=== PATIENT | male | born 1975 | race Caucasian/White ===

== ENCOUNTER 2016-10-13 08:18 | Emergency (ER) | payer OTHER ==
[~2016-10-13] VITALS: Ht 180.3 cm; Wt 70.5 kg
[2016-10-13 08:20] VITALS: BP 133/89; PULSE 85; RESP 16; O2SAT 100
--- NOTE | 2016-10-13 09:19 | ED.REPORT ---
HPI-General Illness Date of Service Oct 13, 2016 ED Provider: Dr. Del Valle Patient is a healthy 41 year old male presenting to the ED c/o low back and left hip pain with radiation down the left leg after a mechanical fall off of a 3.5 feet high deck of a [employer] while helping his friend move last week. Pain is exacerbated by sitting. He denies drinking but admits to smoking,. Nursing Notes Stated Complaint: BACK PAIN Chief Complaint: Back Pain or Injury Nursing Notes Reviewed: Yes Allergies: Coded Allergies: shellfish derived (Verified Adverse Reaction, Severe, Nausea,Vomiting, Diarrhea, 10/13/16) Scheduled PRN Naproxen (Naproxen) 500 Mg Tab 500 MG PO BID PRN PRN For Pain General Time Seen by MD: 09:19 Chief Complaint Back pain Hx Obtained From: Patient Arrived By: Walk-in Sudden in Onset?: Yes Symptom Duration: Since onset Caused by: Fall from height... (3-6 feet) Location: : Back Quality: Painful Radiation: : Leg left Severity: Current: Mild Severity: Maximum: Moderate Recent Healthcare: No recent hospitalization Past Medical History Past Medical History Healthy Past Surgical History Bilateral knee surgery Neck surgey Smoking History Current Every Day Smoker Social History Alcohol Use: Denies alcohol use Ambulatory Status Independent Review of Systems Full Review of Systems Cardiovascular: Denies: Chest pain GI: Denies: Abdominal pain, Nausea, Vomiting Musculoskeletal: Reports: Back pain, Extremity pain Complete sys rev & neg: except as marked. Physical Exam Vital Signs Vital Signs Date Time Temp Pulse Resp B/P Pulse Ox O2 Delivery O2 Flow Rate FiO2 10/13/16 08:20 36.2 85 16 133/89 100 Initial VS: Reviewed, Vital signs normal Head / Eyes: Atraumatic, Normocephalic, PERRL ENT: Mucous membranes moist, Conjunctiva normal, No scleral icterus Neck: Supple, Full range of motion Respiratory: No respiratory distress Abdomen / GI: Soft, Non-tender Extremities: Vascular intact, Neuro intact Skin: Warm, Dry Neurologic: Alert, Oriented Psychiatric: Mood/affect normal, Behavior normal General/Constitutional: Awake, Alert, No acute distress, Well appearing, Cooperative, Not toxic appearing Back: Atraumatic, Inspection NL, No muscle spasm, Straight leg raise neg Focal left gluteal tenderness over the sciatic area. Interpretation & Diagnostics X-Ray Interpretation Xray Interpretation: PROCEDURE: X-RAY PELVIS W/LAT HIP IMPRESSION: No visualized acute fracture or dislocation. However, if clinical concern and/or pain persist, short interval imaging followup in 7-10 days is recommended, as occult injury cannot be definitively excluded. Dictated by: Yuridia Pena M.D. on 10/13/2016 at 9:40 Approved by: Yuridia Pena M.D. on 10/13/2016 at 9:41 X-Ray Ordered: Hip left Interpretation / Wet Read by: Interpret - Radiologist Re-Eval/Medical Decision Time of Eval: 10:00 Re-Evaluation/Progress Note: Radiology results and diagnosis discussed with patient. He undertands and agrees with the plan. All questions have been answered at this time. Counseled Regarding: Diagnosis, Lab results, Need for follow-up, When/why to return to ED Discharge & Departure Primary Impression: Contusion, buttock Encounter type: initial encounter Qualified Code: S30.0XXA - Contusion of lower back and pelvis, initial encounter Disposition: Home Discharge Condition All VS Reviewed: Yes Condition: Improved Additional Instructions: Take naproxen for pain, ice your buttock area, rest. Follow-up with primary care doctor or return to the ER as needed if you develop persistent pain going down your leg, loss of motor or sensory function, loss of bowel or bladder function, or other concerns. Referrals: [facility] Scribe Attestation Portions of this note were transcribed by Urbano Kwan and Tommy Harmon. I, Dr. Del Valle personally performed the history, physical exam and medical decision-making; I reviewed and confirmed the accuracy of the information in the transcribed note. Signed by: Jude Munroe, 10/13 1058. copies to: [facility] Tirso Del Valle DO Oct 13, 2016 09:19 Urbano Kwan Oct 13, 2016 09:42 TOMMY HARMON Oct 13, 2016 11:10
--- NOTE | 2016-10-13 09:42 | DRSVH ---
PROCEDURE: X-RAY PELVIS W/LAT HIP (LT) ([id number]) INDICATIONS: fell onto left hip/pelvis area, severe pain TECHNIQUE: AP pelvis with lateral view(s) of the left hip(s). COMPARISON: None. FINDINGS: Bones: No fractures or dislocations. Pelvic ring appears intact. No suspicious bony lesions. Soft tissues: The visualized bowel gas pattern is normal. No suspicious soft tissue calcifications. IMPRESSION: No visualized acute fracture or dislocation. However, if clinical concern and/or pain pe rsist, short interval imaging followup in 7-10 days is recommended, as occult injury cannot be defini tively excluded. Dictated by: Yuridia Pena M.D. on 10/13/2016 at 9:40 Approved by: Yuridia Pena M.D. on 10/13/2016 at 9:41
[2016-10-13] MEDS ORDERED: NPR500T PO (09:44)
== END 2016-10-13 09:57 | disposition home or self-care (01) ==
LOC: SED 08:18
DX: S30.0XXA Contusion of lower back and pelvis, initial encounter (principal); W17.89XA Other fall from one level to another, initial encounter; Y92.818 Other transport vehicle as the place of occurrence of the external cause; Y93.E6 Activity, residential relocation; Y99.8 Other external cause status; F17.200 Nicotine dependence, unspecified, uncomplicated